=== PATIENT | female | born 1950 | race Caucasian/White ===

== ENCOUNTER 2023-11-06 02:06 | Day surgery (SDC) | payer MEDICARE, SELFPAY ==
--- NOTE | 2023-11-01 09:00 | PC.NURSE ---
Report to the Outpatient Waiting Room, entrance under the green pavilion located off [facility], at time _0745 on date _11/06/23 . Planned Procedure Time: __0945 . Time changes happen often and if your time is changed the preop area will call you the afternoon before. - You and your visitor will be asked to self-screen and do not enter if you have any COVID symptoms. - A mask is optional within the hospital at this time. Patients may have clear liquids (water, carbonated beverages, clear teas, apple juice) until 3 hours prior to surgery( 0645 ) with a maximum of 20 ounces. - No food from midnight until time of surgery - Take the following medications with a SIP of water the morning of surgery: ___AMLODIPINE,CARVEDILOL DO NOT STOP ANY OF YOUR OTHER PRESCRIPTION MEDICATIONS PRIOR TO SURGERY ?EXCEPT THE FOLLOWING Medications to discontinue per physician ___ASPIRIN HOLD PER DR NESBITT, HOLD VITAMIN D3 3 DAYS PRE OP.LAST DOSE 11/02/23 Please no make-up, nail tamazight, hairspray, perfume, deodorant, or body powder the day of surgery. No jewelry (including any body piercings) or valuables the day of surgery, leave them at home. Please take a shower or bath the night before, or the morning of, surgery with an antibacterial soap. Wear comfortable, loose fitting clothing. Children are encouraged to wear pajamas. - Jewelry must be removed prior to entering the operating room. Rings and piercings that are not removed may be cut off. - The hospital will not accept responsibility for valuables. - Please leave all valuables, including medications, at home the day of surgery. If you are going home after surgery, a licensed truck driver teamster must drive you home. - NO public transportation without another adult if you receive anesthesia. - We recommend that an adult stay with you for 24 hours following discharge. - We also recommend that you do not drive, make important decision, drink alcoholic beverages, or take any drugs that were not prescribed by your health care provider for at least 24 hours after your discharge time. Follow any additional instructions given to you from your surgeon. If you or anyone in your household have experienced Covid symptoms in the past week, please notify your surgeon or the nurse liaison at the phone number below for possible testing. Telephone instructions given to __PATIENT and asked if any additional questions and then verbalized understanding. Patient advised to call surgeon office or pre surgery nurse liaison [phone] if any additional questions.
[2023-11-01 09:22] VITALS: BMI 44.2
[2023-11-06 08:00] VITALS: BP 150/66; PULSE 59; RESP 20; TEMP 37.1; O2SAT 97
--- NOTE | 2023-11-06 08:00 | WPDHPUPDATE1 ---
History and Physical Update Update Date/Time: 11/06/23 08:00 History and Physical has been reviewed, including an updated exam of the patient. There are NO changes in the patient's condition. Risks, benefits, and alternatives have been discussed and questions answered. Patient agrees to proceed with procedure.
--- NOTE | 2023-11-06 08:01 | PM.HPGS ---
History of Present Illness History of Present Illness Consent: Risks, benefits, and alternatives have been discussed and questions answered. Patient agrees to proceed with procedure. Chief complaint: post menopausal bleeding Narrative: Crista Perera is a 73 year old female with postmenopausal bleeding. It was recommended to proceed with D&C hysteroscopy. Risks of infection, bleeding, perforation, and possible pathology are reviewed. Patient voiced understanding and agrees to proceed. Review of Systems Review of Systems: not repeated day of surgery; patient states no changes in status PMFSH Past Medical History Medical History (Updated 11/06/23 @ 08:03 by Yanna Burden MD) HTN (hypertension) Hypercholesterolemia (normal spontaneous vaginal delivery) x2 Surgical History Surgical History (Updated 11/06/23 @ 08:03 by Yanna Burden MD) History of D&C 1984 with laparoscopy and 1989 History of laparoscopy 1984 for fibroids Hx laparoscopic cholecystectomy Social History Social History Years smoked: 8 Smoking status: Former smoker Tobacco type: cigarettes Smoking end date: 11/20/94 Living arrangements: alone Spiritual care concerns: No Meds Home Medications and Allergies Home Medications Medication Instructions Recorded Confirmed Type amlodipine 5 mg tablet 5 mg PO BID 11/01/23 11/01/23 History aspirin 81 mg tablet,delayed 81 mg PO DAILY 11/01/23 11/01/23 History release (Adult Low Dose Aspirin) carvedilol 12.5 mg tablet 12.5 mg PO BID 11/01/23 11/01/23 History cholecalciferol (vitamin D3) 125 125 mcg PO BID 11/01/23 11/01/23 History mcg (5,000 unit) capsule hydrochlorothiazide 25 mg tablet 25 mg PO DAILY 11/01/23 11/01/23 History hydrocodone 5 mg-acetaminophen 325 1 tablet PO Q4-6H PRN Pain 11/01/23 11/01/23 History mg tablet losartan 100 mg tablet 100 mg PO DAILY 11/01/23 11/01/23 History Allergies Allergy/AdvReac Type Severity Reaction Status Date / Time morphine AdvReac Severe Nausea and Verified 11/06/23 07:53 Vomiting cefepime AdvReac Rash AND Verified 11/06/23 07:53 SWELLING vancomycin AdvReac Rash AND Verified 11/06/23 07:53 SWELLING Exam Const: General: healthy appearing and alert Orientation/consciousness: patient oriented x3 Resp: Effort & Inspection: normal respiratory effort GI: GI Palp: Yes Soft to palpation, No Tenderness to palpation present (GI) and No Palpable mass present : External Female Exam: normal external appearance Speculum Exam - Vagina: normal appearance of the vagina and normal vaginal discharge Speculum Exam - Cervix: normal appearance of the cervix Bimanual exam- vagina & uterus: uterine size normal and consistency normal Bimanual Exam- Adnexa, other: normal adnexae and No adnexal tenderness Neuro: General: patient oriented x3 Assessment and Plan Assessment and plan (1) Post-menopausal bleeding: Code(s): N95.0 - Postmenopausal bleeding Status: Acute Assessment and Plan: plan to proceed with D&C hysteroscopy
[2023-11-06] MEDS: ACETAMINOPHEN 500 MG TABLET 1000 MG PO (08:12)
[2023-11-06] MEDS: LACTATED RINGERS 1,000 ML 30 ML IV CONT (08:27)
--- NOTE | 2023-11-06 09:10 | WPDANESEPPF ---
Anes - Initial Pre Proc Eval Procedure: Operation Date: 11/06/23 09:45 Proposed Procedures p Hysteroscopy Dilation and Curettage - Yanna Burden MD Date/Time: 11/06/23 09:10 Surgeon: Yanna Burden MD Pre Op Diagnosis: post menopausal bleeding Patient Data Age: 73 Gender: F Height: 1.65 m Weight: 121.1 kg Last Vital Signs Temp 37.1 C 11/06/23 08:00 Pulse 59 L 11/06/23 08:00 Resp 20 11/06/23 08:00 BP 150/66 H 11/06/23 08:00 Pulse Ox 97 11/06/23 08:00 O2 Del Method Room Air 11/06/23 08:00 Allergies Allergy/AdvReac Type Severity Reaction Status Date / Time cefepime Allergy Rash AND Verified 11/06/23 08:14 SWELLING vancomycin Allergy Rash AND Verified 11/06/23 08:14 SWELLING morphine AdvReac Severe Nausea and Verified 11/06/23 07:53 Vomiting Home Medications Medication Instructions Recorded Confirmed Type amlodipine 5 mg tablet 5 mg PO BID 11/01/23 11/01/23 History aspirin 81 mg tablet,delayed 81 mg PO DAILY 11/01/23 11/01/23 History release (Adult Low Dose Aspirin) carvedilol 12.5 mg tablet 12.5 mg PO BID 11/01/23 11/01/23 History cholecalciferol (vitamin D3) 125 125 mcg PO BID 11/01/23 11/01/23 History mcg (5,000 unit) capsule hydrochlorothiazide 25 mg tablet 25 mg PO DAILY 11/01/23 11/01/23 History hydrocodone 5 mg-acetaminophen 325 1 tablet PO Q4-6H PRN Pain 11/01/23 11/01/23 History mg tablet losartan 100 mg tablet 100 mg PO DAILY 11/01/23 11/01/23 History Patient hx anesthesia problems: none Family hx anesthesia problems: none Results Review: All pre-operative results and documents have been reviewed as part of the pre-operative evaluation. [facility] Past Medical History Medical History (Updated 11/06/23 @ 09:10 by Sylvester Vance MD) HTN (hypertension) Hypercholesterolemia Morbid obesity (normal spontaneous vaginal delivery) x2 Surgical History Surgical History History of D&C 1984 with laparoscopy and 1989 History of laparoscopy 1984 for fibroids Hx laparoscopic cholecystectomy Social History Social History Years smoked: 8 Smoking status: Former smoker Tobacco type: cigarettes Smoking end date: 11/20/94 Living arrangements: alone Spiritual care concerns: No Anes - Eval Final PreProcedure Day of Procedure 11/06/23 09:10 Patient weight: morbidly obese Heart: regular rate and rhythm Lungs: clear to auscultation Airway: Mallampati scale class II Neurological: alert and oriented Last oral intake: >/= 8 hours ASA classification: III Emergent: no Anesthetic plan: proceed Anesthesia type and monitoring: general GIVS and standard monitoring Results Review: All pre-operative results and documents have been reviewed as part of the pre-operative evaluation. Informed Consent: The patient's anesthetic plan and its attendant risks and benefits were discussed with the patient/family/POA. Questions were solicited and answers provided to the satisfaction of the patient/family/POA.
--- NOTE | 2023-11-06 09:44 | W.PM.PROC2 ---
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 She was prepped and draped in usual sterile fashion. [place] speculum was placed in the vagina and the cervix grasped on the anterior lip with a tenaculum. The uterus was attempted to be sounded the internal cervical stenosis is encountered. The Hegar dilators are used and able to enter the cavity. The cervix is dilated to a 5 Hegar. The uterus was then sounded to 7cm. The diagnostic hysteroscope was placed with the above-stated findings. The Aveeta resection device is placed through the hysteroscope and under direct visualization the vascular mass is removed and the anterior and posterior bradley are resected over the thickened areas. The hysteroscope was then removed and the sharp curette used to curette the endometrium until a good uterine cry was noted in all areas. All instruments were then removed. Sponge, needle, and instrument counts are correct per the OR staff. Patient was awakened from anesthesia and taken to recovery in stable condition. Estimated Blood Loss 5 Drains No Packing No Pathology Yes ( Endometrial shavings and curettings) Complications No immediate complications Condition Stable Disposition PACU
[2023-11-06 09:47] VITALS: BP 108/41; PULSE 92; RESP 14; O2SAT 98
[2023-11-06 10:15] VITALS: BP 146/52; PULSE 55; RESP 16; O2SAT 97
[2023-11-06 10:35] VITALS: BP 142/52; PULSE 53; RESP 16
== END 2023-11-06 10:46 | disposition home or self-care (01) ==
PROVIDERS: PCP Family Medicine; Visit Provider Obstetrics & Gynecology Gynecology
PROC: 0U5B8ZZ Destruction of Endometrium, Via Natural or Artificial Opening Endoscopic (ICD-10-PCS; CPT 58563; principal; 2023-11-06 09:45)
DX: C54.1 Malignant neoplasm of endometrium (principal); N95.0 Postmenopausal bleeding; I10 Essential (primary) hypertension; E78.00 Pure hypercholesterolemia, unspecified; E66.01 Morbid (severe) obesity due to excess calories; Z68.41 Body mass index [BMI] 40.0-44.9, adult; Z87.891 Personal history of nicotine dependence; Z79.82 Long term (current) use of aspirin
CPT/HCPCS: 58558; 88305; 88342; 88365; A9270; J2250; J2405; J2704; J3010; J7120